=== PATIENT | male | born 1970 | race Caucasian/White ===

== ENCOUNTER 2018-05-25 22:35 | Emergency (ER) | payer BC ==
[~2018-05-25] VITALS: Ht 167.6 cm; Wt 100.8 kg
[2018-05-25 22:39] VITALS: BP 165/131
[2018-05-26] MEDS ORDERED: CIPRODEX OTIC7.5 ML LEFT EAR (00:31)
== END 2018-05-26 00:39 | disposition home or self-care (01) ==
LOC: EME 22:35
DX: H72.92 Unspecified perforation of tympanic membrane, left ear (principal)
CPT/HCPCS: 99281; 99284